=== PATIENT | female | born 1935 | race Caucasian/White ===

== ENCOUNTER → 2019-02-01 | Outpatient (CLI) | payer OTHER ==
[~2019-02-01] MED LIST: ACYC800 PO; ALBU90OI INH; ASPI325 PO; ASPI81CH PO; ASPI81EC PO; Boniva150 MG PO; CALCIUM 600 +1 EAC7 PO; CHOL10002 PO; CIPR500 PO; CLINDAMYCIN PHO TOP; CODGUAEL PO; CORTISONE TP; CYCL10 PO; Cipro500 MG PO; DIAZ5 PO; DOCU100 PO; DOXY100 PO; FISH1000 PO; GABA300 PO; HYDR-86 PO; IBANDRONATE SO150 MG PO; IFEREX PO; LEVFLO500 PO; MECL25 PO; META800 PO; MULVITMIND PO; Macrobid 100 M100 MG PO; Macrodantin100 MG PO; Norco 5-325 Ta1 EACH PO; ONDA4ODT MM; OXYACE5T PO; OXYC1TAB11 PO; PRED20 PO; Percocet 5-3251 EACH PO; Pyridium200 MG PO; RXOXYACE PO; SOLI5 PO; SULTRIDS PO; Stool Softener100 MG PO; TOLT4 PO; Toviaz8 MG PO; VITAMIN D32000 UNIT PO; Valium5 MG PO; WOMEN'S DAILY1 EACH PO; [UNRECOGNIZED DRUG - CODE]; [UNRECOGNIZED DRUG - CODE] PO; [UNRECOGNIZED DRUG - OTHER] PO; [UNRECOGNIZED DRUG - OTHER] TOP
[2019-02-01 19:32] LABS: BASOPHILS ABSOLUTE AUTO 0.06 K/mm3 (0.00-0.23); BASOPHILS PERCENT AUTO 1 % (0-2); EOSINOPHILS ABSOLUTE AUTO 0.37 K/mm3 (0.00-0.68); EOSINOPHILS PERCENT AUTO 5 % (0-6); Hematocrit 40.2 % (33.0-51.0); Hemoglobin 12.5 g/dL (11.5-16.0); IMMATURE GRAN ABSOLUTE AUTO 0.02 K/mm3 (0.00-0.10); IMMATURE GRAN PERCENT AUTO 0 % (0-1); LYMPHOCYTES ABSOLUTE AUTO 2.02 K/mm3 (0.84-5.20); LYMPHOCYTES PERCENT AUTO 27 % (21-46); MONOCYTES ABSOLUTE AUTO 0.66 K/mm3 (0.16-1.47); MONOCYTES PERCENT AUTO 9 % (4-13); Mean Corpuscular HGB 29.7 pg (26.0-34.0); Mean Corpuscular HGB Conc 31.1 g/dL (31.5-36.5); Mean Corpuscular Volume 96 fL (80-100); Mean Platelet Volume 9.9 fL (9.1-12.4); NEUTROPHILS ABSOLUTE AUTO 4.43 K/mm3 (1.96-9.15); NEUTROPHILS PERCENT AUTO 59 % (41-73); Platelet Count 311 K/mm3 (150-400); RDW Coefficient Variation 13.1 % (11.7-14.2); RDW Standard Deviation 45.6 fL (35.1-46.3); Red Blood Cell Count 4.21 M/mm3 (3.80-5.20); White Blood Cell Count 7.56 K/mm3 (4.00-11.30)
[2019-02-01 19:46] LABS: Albumin, Blood 3.5 g/dL (3.4-5.0); Albumin/Globulin Ratio 0.8 (0.8-1.8); Bilirubin, Total 0.2 mg/dL (0.1-1.0); Bun/Creatinine Ratio 30.4 (12.0-20.0); Calcium, Blood 9.1 mg/dL (8.5-10.1); Creatinine, Blood 0.99 mg/dL (0.40-1.00); Globulin, Blood 4.2 g/dL (2.2-4.0); Potassium, Blood 3.9 mmol/L (3.5-5.5); Total Protein, Blood 7.7 g/dL (6.4-8.2)
== END ==
LOC: LAB SHORT 19:15 → LAB 19:15
PROVIDERS: Nurse Practitioner
DX: R19.7 Diarrhea, unspecified (principal); R10.9 Unspecified abdominal pain; R53.83 Other fatigue
CPT/HCPCS: 80053; 85025

== ENCOUNTER → 2019-02-01 | Outpatient (CLI) | payer OTHER ==
[2019-02-02 19:42] LABS: Adenovirus F 40/41 Not Detected (NOT DETECT); Astrovirus Not Detected (NOT DETECT); Campylobacter Sp Not Detected (NOT DETECT); Cryptosporidium Not Detected (NOT DETECT); Cyclospora Cayetanensis Not Detected (NOT DETECT); E. Coli O157 Not Detected (NOT DETECT); Entamoeba Histolytica Not Detected (NOT DETECT); Enteroaggregative E. coli-EAEC Not Detected (NOT DETECT); Enteropathogenic E. coli-EPEC Not Detected (NOT DETECT); Enterotoxigenic E. coli-ETEC Not Detected (NOT DETECT); Giardia Lamblia Not Detected (NOT DETECT); Norovirus GI/GII Not Detected (NOT DETECT); Plesiomonas Shigelloides Not Detected (NOT DETECT); Rotavirus A Not Detected (NOT DETECT); Salmonella Sp Not Detected (NOT DETECT); Sapovirus Not Detected (NOT DETECT); Shiga Toxin-prod E. coli-STEC Not Detected (NOT DETECT); Shigella/Enteroin E. coli-EIEC Not Detected (NOT DETECT); Vibrio Cholerae Not Detected (NOT DETECT); Vibrio Sp Not Detected (NOT DETECT); Yersinia Enterocolitica Not Detected (NOT DETECT)
== END ==
LOC: LAB SHORT 17:57 → LAB 17:57 → LAB SHORT 02-02 16:11
PROVIDERS: Nurse Practitioner
DX: R19.7 Diarrhea, unspecified (principal); R10.9 Unspecified abdominal pain; R53.83 Other fatigue
CPT/HCPCS: 87324; 87507

== ENCOUNTER 2019-05-18 18:33 | Emergency (ER) | payer OTHER ==
[~2019-05-18] VITALS: Ht 165.1 cm; Wt 82.1 kg
[2019-05-18 19:29] LABS: BASOPHILS ABSOLUTE AUTO 0.07 K/mm3 (0.00-0.23); BASOPHILS PERCENT AUTO 1 % (0-2); EOSINOPHILS ABSOLUTE AUTO 0.39 K/mm3 (0.00-0.68); EOSINOPHILS PERCENT AUTO 5 % (0-6); Hemoglobin 12.8 g/dL (11.5-16.0); IMMATURE GRAN ABSOLUTE AUTO 0.03 K/mm3 (0.00-0.10); IMMATURE GRAN PERCENT AUTO 0 % (0-1); LYMPHOCYTES ABSOLUTE AUTO 2.49 K/mm3 (0.84-5.20); LYMPHOCYTES PERCENT AUTO 34 % (21-46); MONOCYTES ABSOLUTE AUTO 0.75 K/mm3 (0.16-1.47); MONOCYTES PERCENT AUTO 10 % (4-13); Mean Corpuscular HGB 29.5 pg (26.0-34.0); Mean Corpuscular HGB Conc 30.5 g/dL (31.5-36.5); Mean Corpuscular Volume 97 fL (80-100); Mean Platelet Volume 8.9 fL (9.1-12.4); NEUTROPHILS ABSOLUTE AUTO 3.51 K/mm3 (1.96-9.15); NEUTROPHILS PERCENT AUTO 48 % (41-73); Platelet Count 334 K/mm3 (150-400); RDW Coefficient Variation 12.9 % (11.7-14.2); RDW Standard Deviation 46.2 fL (35.1-46.3); Red Blood Cell Count 4.34 M/mm3 (3.80-5.20); White Blood Cell Count 7.24 K/mm3 (4.00-11.30)
[2019-05-18 19:53] LABS: Alanine Aminotransfer (ALT/SGP 19 U/L (12-78); Albumin, Blood 3.4 g/dL (3.4-5.0); Albumin/Globulin Ratio 0.8 (0.8-1.8); Alk Phos 71 U/L (50-136); Anion Gap 9 mmol/L (6-16); Aspartate Aminotrans (AST/SGOT 23 U/L (12-37); Bilirubin, Total 0.3 mg/dL (0.1-1.0); Blood Urea Nitrogen 26 mg/dL (8-24); Bun/Creatinine Ratio 19.7 (12.0-20.0); CO2, Blood 25 mmol/L (21-32); Calcium, Blood 8.7 mg/dL (8.5-10.1); Chloride, Blood 105 mmol/L (98-108); Creatinine, Blood 1.32 mg/dL (0.40-1.00); Globulin, Blood 4.3 g/dL (2.2-4.0); Glomerular Filtration Rate 41 (60-); Glucose, Blood 102 mg/dL (70-99); Potassium, Blood 4.4 mmol/L (3.5-5.5); Sodium, Blood 139 mmol/L (136-145); Total Protein, Blood 7.7 g/dL (6.4-8.2); Troponin I <0.015 ng/mL (0.000-0.040)
== END 2019-05-18 20:45 | disposition home or self-care (01) ==
LOC: ER 18:33
PROVIDERS: Emergency Medicine
DX: I49.9 Cardiac arrhythmia, unspecified (principal); Z87.891 Personal history of nicotine dependence; Z79.899 Other long term (current) drug therapy; Z79.82 Long term (current) use of aspirin
CPT/HCPCS: 36415; 71046; 80053; 83880; 84484; 85025; 93005; 93010; 99285-25

== ENCOUNTER 2019-09-20 05:54 | Day surgery (SDC) | payer OTHER ==
[~2019-09-20] VITALS: Ht 160 cm; Wt 82.0 kg
[~2019-09-20 05:54] MED LIST changes: +Aspir 8181 MG PO; +Flonase 0.05% N16 GM; +IRON240 MG PO; +MOTION RELIEF25 MG PO; +NARCAN4 MG UD; +Triamcinolone A15 G3 TOP
--- NOTE | 2019-09-20 10:30 | NUR ---
PT ABUATES TO RESTROOM WITH SBA. PT STEADY GAIT. TOW.
[2019-09-20 11:17] LABS: BASOPHILS ABSOLUTE AUTO 0.06 K/mm3 (0.00-0.23); BASOPHILS PERCENT AUTO 1 % (0-2); EOSINOPHILS ABSOLUTE AUTO 0.38 K/mm3 (0.00-0.68); EOSINOPHILS PERCENT AUTO 6 % (0-6); Hematocrit 38.8 % (33.0-51.0); Hemoglobin 11.9 g/dL (11.5-16.0); IMMATURE GRAN ABSOLUTE AUTO 0.03 K/mm3 (0.00-0.10); IMMATURE GRAN PERCENT AUTO 1 % (0-1); LYMPHOCYTES ABSOLUTE AUTO 1.84 K/mm3 (0.84-5.20); LYMPHOCYTES PERCENT AUTO 31 % (21-46); MONOCYTES ABSOLUTE AUTO 0.39 K/mm3 (0.16-1.47); MONOCYTES PERCENT AUTO 7 % (4-13); Mean Corpuscular HGB Conc 30.7 g/dL (31.5-36.5); Mean Corpuscular Volume 95 fL (80-100); Mean Platelet Volume 8.8 fL (9.1-12.4); NEUTROPHILS ABSOLUTE AUTO 3.25 K/mm3 (1.96-9.15); NEUTROPHILS PERCENT AUTO 55 % (41-73); Platelet Count 330 K/mm3 (150-400); RDW Coefficient Variation 12.8 % (11.7-14.2); RDW Standard Deviation 44.1 fL (35.1-46.3); White Blood Cell Count 5.95 K/mm3 (4.00-11.30)
--- NOTE | 2019-09-20 12:05 | NUR ---
Pt iv removed cath intact. Dr. Noble called pt ok to be discharged. Pt in good spirits. Family at bedside- home via private auto.
== END 2019-09-20 12:00 | disposition home or self-care (01) ==
LOC: MHTC 05:54
PROVIDERS: Internal Medicine Cardiovascular Disease
DX: I49.5 Sick sinus syndrome (principal); M19.90 Unspecified osteoarthritis, unspecified site; Q63.1 Lobulated, fused and horseshoe kidney; Z88.8 Allergy status to other drugs, medicaments and biological substances; M54.9 Dorsalgia, unspecified; G89.29 Other chronic pain; Z79.82 Long term (current) use of aspirin; Z79.899 Other long term (current) drug therapy
CPT/HCPCS: 33208; 36415; 71046; 85025; 93005; 93010; 99152; 99153; C1785; C1898; J0690; J1644; J2250; J3010; J7030; J7040; Q9967

== ENCOUNTER 2019-10-01 15:01 | Emergency (ER) | payer OTHER ==
[~2019-10-01] VITALS: Ht 160 cm; Wt 68.0 kg
[2019-10-01 16:49] LABS: BASOPHILS ABSOLUTE AUTO 0.04 K/mm3 (0.00-0.23); BASOPHILS PERCENT AUTO 0 % (0-2); EOSINOPHILS ABSOLUTE AUTO 0.01 K/mm3 (0.00-0.68); EOSINOPHILS PERCENT AUTO 0 % (0-6); Hematocrit 35.7 % (33.0-51.0); Hemoglobin 11.6 g/dL (11.5-16.0); IMMATURE GRAN ABSOLUTE AUTO 0.06 K/mm3 (0.00-0.10); IMMATURE GRAN PERCENT AUTO 1 % (0-1); LYMPHOCYTES ABSOLUTE AUTO 0.67 K/mm3 (0.84-5.20); LYMPHOCYTES PERCENT AUTO 6 % (21-46); MONOCYTES ABSOLUTE AUTO 0.59 K/mm3 (0.16-1.47); MONOCYTES PERCENT AUTO 5 % (4-13); Mean Corpuscular HGB 30.2 pg (26.0-34.0); Mean Corpuscular HGB Conc 32.5 g/dL (31.5-36.5); Mean Corpuscular Volume 93 fL (80-100); NEUTROPHILS PERCENT AUTO 89 % (41-73); Platelet Count 300 K/mm3 (150-400); RDW Coefficient Variation 12.5 % (11.7-14.2); RDW Standard Deviation 42.3 fL (35.1-46.3); Red Blood Cell Count 3.84 M/mm3 (3.80-5.20); White Blood Cell Count 12.27 K/mm3 (4.00-11.30)
[2019-10-01 17:09] LABS: Albumin, Blood 3.1 g/dL (3.4-5.0); Albumin/Globulin Ratio 0.8 (0.8-1.8); Bilirubin, Total 0.7 mg/dL (0.1-1.0); Bun/Creatinine Ratio 21.4 (12.0-20.0); Calcium, Blood 8.9 mg/dL (8.5-10.1); Creatinine, Blood 1.12 mg/dL (0.40-1.00); Potassium, Blood 3.8 mmol/L (3.5-5.5); Total Protein, Blood 7.1 g/dL (6.4-8.2)
[2019-10-01 17:28] LABS: Source, Urine Clean Catch
[2019-10-01 17:34] LABS: Bilirubin, Urine Neg (Neg); Blood, Urine 4+ (Neg); Glucose Qualitative, Urine Neg (Neg); Ketones, Urine Neg (Neg); Leukocyte Esterase, Urine 3+ (Neg); Nitrite, Urine Neg (Neg); Protein, Urine 3+ (Neg); Urobilinogen, Urine NORM (Normal)
[2019-10-01 18:12] LABS: Appearance, Urine Cloudy (Clear); Color, Urine Yellow (P-Yellow)
[2019-10-01 18:13] LABS: Bacteria Many /hpf; Red Blood Cells, Urine 25-50 /hpf (0-2); Squamous Epithelial Cells Few /hpf (Few); White Blood Cells, Urine TNTC /hpf (0-5)
[2019-10-01] MEDS ORDERED: CEPH500 PO (20:32)
== END 2019-10-01 21:06 | disposition home or self-care (01) ==
LOC: ER 15:01
PROVIDERS: Emergency Medicine
DX: N39.0 Urinary tract infection, site not specified (principal); Z88.8 Allergy status to other drugs, medicaments and biological substances; Z79.899 Other long term (current) drug therapy; Z79.82 Long term (current) use of aspirin; Z87.891 Personal history of nicotine dependence
CPT/HCPCS: 36415; 71045; 80053; 81001; 83690; 85025; 87077; 87086; 87186; 93005; 93010; 96361; 96365; 99284-25; J0696; J7030; P9612

== ENCOUNTER 2020-01-05 00:47 | Emergency (ER) | payer OTHER ==
[~2020-01-05] VITALS: Ht 157.5 cm; Wt 81.7 kg
[~2020-01-05 00:47] MED LIST changes: +CEPH500 PO
[2020-01-05 01:46] LABS: BASOPHILS ABSOLUTE AUTO 0.06 K/mm3 (0.00-0.23); BASOPHILS PERCENT AUTO 1 % (0-2); EOSINOPHILS ABSOLUTE AUTO 0.13 K/mm3 (0.00-0.68); EOSINOPHILS PERCENT AUTO 1 % (0-6); Hematocrit 39.4 % (33.0-51.0); Hemoglobin 12.6 g/dL (11.5-16.0); IMMATURE GRAN ABSOLUTE AUTO 0.05 K/mm3 (0.00-0.10); IMMATURE GRAN PERCENT AUTO 1 % (0-1); LYMPHOCYTES PERCENT AUTO 9 % (21-46); MONOCYTES ABSOLUTE AUTO 0.71 K/mm3 (0.16-1.47); MONOCYTES PERCENT AUTO 7 % (4-13); Mean Corpuscular HGB 29.6 pg (26.0-34.0); Mean Corpuscular Volume 93 fL (80-100); Mean Platelet Volume 8.9 fL (9.1-12.4); NEUTROPHILS ABSOLUTE AUTO 8.42 K/mm3 (1.96-9.15); NEUTROPHILS PERCENT AUTO 82 % (41-73); Platelet Count 278 K/mm3 (150-400); RDW Coefficient Variation 12.8 % (11.7-14.2); RDW Standard Deviation 43.3 fL (35.1-46.3); Red Blood Cell Count 4.26 M/mm3 (3.80-5.20); White Blood Cell Count 10.27 K/mm3 (4.00-11.30)
[2020-01-05 02:02] LABS: Albumin, Blood 3.4 g/dL (3.4-5.0); Albumin/Globulin Ratio 0.8 (0.8-1.8); Bilirubin, Total 0.2 mg/dL (0.1-1.0); Bun/Creatinine Ratio 24.3 (12.0-20.0); Calcium, Blood 9.1 mg/dL (8.5-10.1); Creatinine, Blood 1.03 mg/dL (0.40-1.00); Globulin, Blood 4.1 g/dL (2.2-4.0); Potassium, Blood 3.8 mmol/L (3.5-5.5); Total Protein, Blood 7.5 g/dL (6.4-8.2)
[2020-01-05 02:09] LABS: Source, Urine Clean Catch
[2020-01-05 02:14] LABS: Bilirubin, Urine Neg (Neg); Blood, Urine 2+ (Neg); Glucose Qualitative, Urine Neg (Neg); Ketones, Urine Neg (Neg); Leukocyte Esterase, Urine 3+ (Neg); Nitrite, Urine Pos (Neg); Protein, Urine 3+ (Neg); Specific Gravity, Urine 1.015 (1.003-1.022); Urobilinogen, Urine NORM (Normal); pH, Urine 6.5 (5.0-8.0)
[2020-01-05 02:28] LABS: Appearance, Urine Hazy (Clear); Color, Urine Yellow (P-Yellow); White Blood Cells, Urine 50-100 /hpf (0-5)
[2020-01-05 02:29] LABS: Bacteria Many /hpf; Squamous Epithelial Cells Rare /hpf (Few)
[2020-01-05 02:43] LABS: Magnesium, Blood 1.7 mg/dL (1.6-2.4); Troponin I <0.015 ng/mL (0.000-0.040)
[2020-01-05 03:27] LABS: Influenza A Negative (NEGATIVE); Influenza B Negative (NEGATIVE)
[2020-01-05] MEDS ORDERED: Keflex500 MG PO (03:51)
== END 2020-01-05 03:59 | disposition home or self-care (01) ==
LOC: ER 00:47
PROVIDERS: Emergency Medicine
DX: N39.0 Urinary tract infection, site not specified (principal); Z88.8 Allergy status to other drugs, medicaments and biological substances; Z79.899 Other long term (current) drug therapy; Z79.82 Long term (current) use of aspirin; Z87.891 Personal history of nicotine dependence
CPT/HCPCS: 36415; 51701; 71046; 80053; 81001; 83605; 83735; 83880; 84145; 84484; 85025; 87040; 87077; 87086; 87186; 87804; 93005; 93010; 96365-59; 99284-25; J0696; J7030

== ENCOUNTER → 2020-01-15 | Outpatient (CLI) | payer OTHER ==
[~2020-01-15] MED LIST changes: +Keflex500 MG PO
[2020-01-15 14:44] LABS: Source, Urine Voided
[2020-01-15 15:51] LABS: Bilirubin, Urine Neg (Neg); Blood, Urine Neg (Neg); Glucose Qualitative, Urine Neg (Neg); Ketones, Urine Neg (Neg); Leukocyte Esterase, Urine Neg (Neg); Nitrite, Urine Neg (Neg); Protein, Urine Neg (Neg); Specific Gravity, Urine 1.015 (1.003-1.022); Urobilinogen, Urine NORM (Normal)
[2020-01-15 16:03] LABS: Appearance, Urine Clear (Clear); Color, Urine Yellow (P-Yellow)
== END | disposition home or self-care (01) ==
LOC: LAB SHORT 14:43 → OLS 14:43
PROVIDERS: Registered Nurse
DX: N30.01 Acute cystitis with hematuria (principal)
CPT/HCPCS: 81003

== ENCOUNTER 2021-02-12 13:48 | Emergency (ER) | payer OTHER ==
[~2021-02-12] VITALS: Ht 160 cm; Wt 81.7 kg
[2021-02-12 14:42] LABS: BASOPHILS ABSOLUTE AUTO 0.05 K/mm3 (0.00-0.23); BASOPHILS PERCENT AUTO 1 % (0-2); EOSINOPHILS ABSOLUTE AUTO 0.22 K/mm3 (0.00-0.68); EOSINOPHILS PERCENT AUTO 3 % (0-6); Hematocrit 37.9 % (33.0-51.0); Hemoglobin 12.2 g/dL (11.5-16.0); IMMATURE GRAN ABSOLUTE AUTO 0.04 K/mm3 (0.00-0.10); IMMATURE GRAN PERCENT AUTO 1 % (0-1); LYMPHOCYTES ABSOLUTE AUTO 1.88 K/mm3 (0.84-5.20); LYMPHOCYTES PERCENT AUTO 23 % (21-46); MONOCYTES ABSOLUTE AUTO 0.75 K/mm3 (0.16-1.47); MONOCYTES PERCENT AUTO 9 % (4-13); Mean Corpuscular HGB 30.4 pg (26.0-34.0); Mean Corpuscular HGB Conc 32.2 g/dL (31.5-36.5); Mean Corpuscular Volume 95 fL (80-100); Mean Platelet Volume 8.9 fL (9.1-12.4); NEUTROPHILS ABSOLUTE AUTO 5.43 K/mm3 (1.96-9.15); NEUTROPHILS PERCENT AUTO 65 % (41-73); Platelet Count 321 K/mm3 (150-400); RDW Coefficient Variation 12.5 % (11.7-14.2); RDW Standard Deviation 43.2 fL (35.1-46.3); Red Blood Cell Count 4.01 M/mm3 (3.80-5.20); White Blood Cell Count 8.37 K/mm3 (4.00-11.30)
[2021-02-12 15:03] LABS: Source, Urine Clean Catch
[2021-02-12 15:06] LABS: Appearance, Urine Hazy (Clear); Bilirubin, Urine Neg (Neg); Blood, Urine 2+ (Neg); Color, Urine Yellow (P-Yellow); Glucose Qualitative, Urine Neg (Neg); Ketones, Urine Neg (Neg); Leukocyte Esterase, Urine 3+ (Neg); Nitrite, Urine Neg (Neg); Protein, Urine 2+ (Neg); Urobilinogen, Urine NORM (Normal)
[2021-02-12 15:27] LABS: Alanine Aminotransfer (ALT/SGP 26 U/L (12-78); Albumin, Blood 3.4 g/dL (3.4-5.0); Albumin/Globulin Ratio 0.8 (0.8-1.8); Alk Phos 79 U/L (50-136); Anion Gap 3 mmol/L (6-16); Aspartate Aminotrans (AST/SGOT 31 U/L (12-37); Bilirubin, Total 0.4 mg/dL (0.1-1.0); Blood Urea Nitrogen 30 mg/dL (8-24); Bun/Creatinine Ratio 22.4 (12.0-20.0); CO2, Blood 32 mmol/L (21-32); Calcium, Blood 9.6 mg/dL (8.5-10.1); Chloride, Blood 102 mmol/L (98-108); Creatinine, Blood 1.34 mg/dL (0.40-1.00); Globulin, Blood 4.3 g/dL (2.2-4.0); Glomerular Filtration Rate 40 (60-); Glucose, Blood 98 mg/dL (70-99); Potassium, Blood 4.5 mmol/L (3.5-5.5); Sodium, Blood 137 mmol/L (136-145); Total Protein, Blood 7.7 g/dL (6.4-8.2); Troponin I <0.015 ng/mL (0.000-0.040)
[2021-02-12 15:41] LABS: Bacteria Mod /hpf; Squamous Epithelial Cells Many /hpf (Few); White Blood Cells, Urine TNTC /hpf (0-5)
[2021-02-12] MEDS ORDERED: Keflex500 MG PO (15:55)
[2021-03-17] MEDS ORDERED: Percocet 5-3251 EACH PO (18:53)
== END 2021-02-12 16:55 | disposition home or self-care (01) ==
LOC: ER 13:48
PROVIDERS: Physician Assistant
DX: N39.0 Urinary tract infection, site not specified (principal); R41.82 Altered mental status, unspecified; Z88.8 Allergy status to other drugs, medicaments and biological substances; Z79.82 Long term (current) use of aspirin; Z79.899 Other long term (current) drug therapy; Z87.891 Personal history of nicotine dependence
CPT/HCPCS: 36415; 71046; 80053; 81001; 84484; 85025; 87086; 93005; 93010; 99285-25; A9270

== ENCOUNTER 2021-03-31 09:46 | Emergency (ER) | payer OTHER ==
[~2021-03-31] VITALS: Ht 162.6 cm; Wt 81.7 kg
[2021-03-31 10:27] LABS: BASOPHILS ABSOLUTE AUTO 0.04 K/mm3 (0.00-0.23); BASOPHILS PERCENT AUTO 0 % (0-2); EOSINOPHILS PERCENT AUTO 0 % (0-6); Hematocrit 30.3 % (33.0-51.0); Hemoglobin 9.9 g/dL (11.5-16.0); IMMATURE GRAN ABSOLUTE AUTO 0.06 K/mm3 (0.00-0.10); IMMATURE GRAN PERCENT AUTO 1 % (0-1); LYMPHOCYTES ABSOLUTE AUTO 1.31 K/mm3 (0.84-5.20); LYMPHOCYTES PERCENT AUTO 13 % (21-46); MONOCYTES ABSOLUTE AUTO 0.78 K/mm3 (0.16-1.47); MONOCYTES PERCENT AUTO 8 % (4-13); Mean Corpuscular HGB 30.6 pg (26.0-34.0); Mean Corpuscular HGB Conc 32.7 g/dL (31.5-36.5); Mean Corpuscular Volume 94 fL (80-100); Mean Platelet Volume 8.3 fL (9.1-12.4); NEUTROPHILS ABSOLUTE AUTO 7.64 K/mm3 (1.96-9.15); NEUTROPHILS PERCENT AUTO 78 % (41-73); Platelet Count 430 K/mm3 (150-400); RDW Coefficient Variation 13.2 % (11.7-14.2); RDW Standard Deviation 44.6 fL (35.1-46.3); Red Blood Cell Count 3.24 M/mm3 (3.80-5.20); White Blood Cell Count 9.83 K/mm3 (4.00-11.30)
[2021-03-31 10:49] LABS: Alanine Aminotransfer (ALT/SGP 22 U/L (12-78); Albumin/Globulin Ratio 0.7 (0.8-1.8); Alk Phos 89 U/L (50-136); Anion Gap 6 mmol/L (6-16); Aspartate Aminotrans (AST/SGOT 22 U/L (12-37); Bilirubin, Total 0.5 mg/dL (0.1-1.0); Blood Urea Nitrogen 17 mg/dL (8-24); Bun/Creatinine Ratio 18.2 (12.0-20.0); CO2, Blood 26 mmol/L (21-32); Calcium, Blood 8.7 mg/dL (8.5-10.1); Chloride, Blood 105 mmol/L (98-108); Creatinine, Blood 0.93 mg/dL (0.40-1.00); Globulin, Blood 4.2 g/dL (2.2-4.0); Glomerular Filtration Rate >60 (60-); Glucose, Blood 108 mg/dL (70-99); Potassium, Blood 3.7 mmol/L (3.5-5.5); Sodium, Blood 137 mmol/L (136-145); Total Protein, Blood 7.2 g/dL (6.4-8.2); Troponin I <0.015 ng/mL (0.000-0.040)
[2021-03-31 10:52] LABS: Thyroid Stimulating Hormone 0.463 uIU/mL (0.360-4.800)
[2021-03-31 11:01] LABS: Source, Urine Voided
[2021-03-31 11:04] LABS: Appearance, Urine Clear (Clear); Bilirubin, Urine Neg (Neg); Blood, Urine 2+ (Neg); Color, Urine Yellow (P-Yellow); Glucose Qualitative, Urine Neg (Neg); Ketones, Urine Neg (Neg); Leukocyte Esterase, Urine 3+ (Neg); Nitrite, Urine Pos (Neg); Protein, Urine 1+ (Neg); Specific Gravity, Urine 1.005 (1.003-1.022); Urobilinogen, Urine NORM (Normal)
[2021-03-31 11:23] LABS: Bacteria Many /hpf; Mucus Light (0-Heavy); Squamous Epithelial Cells Few /hpf (Few)
[2021-03-31] MEDS ORDERED: CEPHALEXIN500 M1 PO (13:15)
== END 2021-03-31 14:06 | disposition home or self-care (01) ==
LOC: ER 09:46
PROVIDERS: Emergency Medicine
DX: N39.0 Urinary tract infection, site not specified (principal); Z88.8 Allergy status to other drugs, medicaments and biological substances; Z79.82 Long term (current) use of aspirin; Z79.899 Other long term (current) drug therapy; Z87.891 Personal history of nicotine dependence
CPT/HCPCS: 36415; 71045; 80053; 81001; 83880; 84443; 84484; 85025; 93005; 93010; 99284-25; A9270; P9612

== ENCOUNTER → 2021-05-23 | Outpatient (CLI) | payer OTHER ==
[~2021-05-23] MED LIST changes: +CEPHALEXIN500 M1 PO
== END | disposition home or self-care (01) ==
LOC: LAB 09:06 → LAB SHORT 09:06
DX: R35.0 Frequency of micturition (principal)
CPT/HCPCS: 87077; 87086; 87186

== ENCOUNTER → 2021-06-18 | Outpatient (CLI) | payer OTHER | LOC: LAB 17:44 → LAB SHORT 17:44 | DX: N39.0 Urinary tract infection, site not specified (principal); Z88.4 Allergy status to anesthetic agent; Z88.1 Allergy status to other antibiotic agents; Z88.2 Allergy status to sulfonamides | CPT/HCPCS: 87086 ==

== ENCOUNTER 2022-06-02 13:00 | Emergency (ER) | payer OTHER ==
[~2022-06-02] VITALS: Ht 154.9 cm; Wt 83.9 kg
== END 2022-06-02 15:06 | disposition home or self-care (01) ==
LOC: ER 13:00
DX: S63.501A Unspecified sprain of right wrist, initial encounter (principal); M25.531 Pain in right wrist; Z79.899 Other long term (current) drug therapy; Z79.82 Long term (current) use of aspirin; Z88.8 Allergy status to other drugs, medicaments and biological substances; Z91.09 Other allergy status, other than to drugs and biological substances; Z87.891 Personal history of nicotine dependence; Z96.651 Presence of right artificial knee joint
CPT/HCPCS: 29125; 73110; 99283-25

== ENCOUNTER → 2022-08-27 | Outpatient (CLI) | payer OTHER | END | disposition home or self-care (01) | LOC: LAB 17:33 → LAB SHORT 17:33 | DX: R30.0 Dysuria (principal) | CPT/HCPCS: 87077; 87086; 87186 ==

== ENCOUNTER → 2022-09-08 | Outpatient (CLI) | payer OTHER ==
[2022-09-08 15:08] LABS: BASOPHILS ABSOLUTE AUTO 0.06 K/mm3 (0.00-0.23); BASOPHILS PERCENT AUTO 1 % (0-2); EOSINOPHILS ABSOLUTE AUTO 0.16 K/mm3 (0.00-0.68); EOSINOPHILS PERCENT AUTO 3 % (0-6); Hematocrit 39.3 % (33.0-51.0); Hemoglobin 12.7 g/dL (11.5-16.0); IMMATURE GRAN ABSOLUTE AUTO 0.01 K/mm3 (0.00-0.10); IMMATURE GRAN PERCENT AUTO 0 % (0-1); LYMPHOCYTES ABSOLUTE AUTO 1.74 K/mm3 (0.84-5.20); LYMPHOCYTES PERCENT AUTO 35 % (21-46); MONOCYTES ABSOLUTE AUTO 0.63 K/mm3 (0.16-1.47); MONOCYTES PERCENT AUTO 13 % (4-13); Mean Corpuscular HGB 30.2 pg (26.0-34.0); Mean Corpuscular HGB Conc 32.3 g/dL (31.5-36.5); Mean Corpuscular Volume 94 fL (80-100); Mean Platelet Volume 9.1 fL (9.1-12.4); NEUTROPHILS ABSOLUTE AUTO 2.37 K/mm3 (1.96-9.15); NEUTROPHILS PERCENT AUTO 48 % (41-73); Platelet Count 315 K/mm3 (150-400); RDW Coefficient Variation 13.8 % (11.7-14.2); RDW Standard Deviation 46.5 fL (35.1-46.3); White Blood Cell Count 4.97 K/mm3 (4.00-11.30)
[2022-09-08 15:29] LABS: Albumin, Blood 3.4 g/dL (3.4-5.0); Bilirubin, Total 0.4 mg/dL (0.1-1.0); Bun/Creatinine Ratio 24.3 (12.0-20.0); Calcium, Blood 9.1 mg/dL (8.5-10.1); Creatinine, Blood 1.03 mg/dL (0.40-1.00); Globulin, Blood 3.3 g/dL (2.2-4.0); Potassium, Blood 4.1 mmol/L (3.5-5.5); Total Protein, Blood 6.7 g/dL (6.4-8.2)
== END ==
LOC: LAB 14:00 → LAB SHORT 14:00
PROVIDERS: Nurse Practitioner Family
DX: R30.0 Dysuria (principal); R41.9 Unspecified symptoms and signs involving cognitive functions and awareness
CPT/HCPCS: 80053; 85025

== ENCOUNTER → 2023-01-06 | Outpatient (CLI) | payer OTHER | END | disposition home or self-care (01) | LOC: LAB 12:00 → LAB SHORT 12:00 | DX: R30.0 Dysuria (principal) | CPT/HCPCS: 87086 ==

== ENCOUNTER → 2023-01-08 | Outpatient (CLI) | payer OTHER ==
[2023-01-08 13:28] LABS: BASOPHILS ABSOLUTE AUTO 0.06 K/mm3 (0.00-0.23); BASOPHILS PERCENT AUTO 1 % (0-2); EOSINOPHILS PERCENT AUTO 2 % (0-6); Hematocrit 41.5 % (33.0-51.0); Hemoglobin 13.9 g/dL (11.5-16.0); IMMATURE GRAN ABSOLUTE AUTO 0.02 K/mm3 (0.00-0.10); IMMATURE GRAN PERCENT AUTO 0 % (0-1); LYMPHOCYTES ABSOLUTE AUTO 1.77 K/mm3 (0.84-5.20); LYMPHOCYTES PERCENT AUTO 29 % (21-46); MONOCYTES PERCENT AUTO 8 % (4-13); Mean Corpuscular HGB 30.2 pg (26.0-34.0); Mean Corpuscular HGB Conc 33.5 g/dL (31.5-36.5); Mean Corpuscular Volume 90 fL (80-100); NEUTROPHILS ABSOLUTE AUTO 3.62 K/mm3 (1.96-9.15); NEUTROPHILS PERCENT AUTO 60 % (41-73); RDW Coefficient Variation 12.8 % (11.7-14.2); RDW Standard Deviation 41.8 fL (35.1-46.3); Red Blood Cell Count 4.61 M/mm3 (3.80-5.20); White Blood Cell Count 6.07 K/mm3 (4.00-11.30)
[2023-01-08 13:46] LABS: Albumin, Blood 3.8 g/dL (3.4-5.0); Albumin/Globulin Ratio 0.8 (0.8-1.8); Bilirubin, Total 0.4 mg/dL (0.1-1.0); Bun/Creatinine Ratio 16.5 (12.0-20.0); Calcium, Blood 9.4 mg/dL (8.5-10.1); Creatinine, Blood 2.49 mg/dL (0.40-1.00); Globulin, Blood 4.5 g/dL (2.2-4.0); Magnesium, Blood 1.6 mg/dL (1.6-2.4); Potassium, Blood 4.2 mmol/L (3.5-5.5); Thyroid Stimulating Hormone 1.182 uIU/mL (0.360-4.800); Total Protein, Blood 8.3 g/dL (6.4-8.2)
[2023-01-08 15:04] LABS: Mean Platelet Volume 8.8 fL (9.1-12.4); Platelet Count 334 K/mm3 (150-400)
== END | disposition home or self-care (01) ==
LOC: LAB 13:13 → LAB SHORT 13:13
PROVIDERS: Physician Assistant
DX: R53.83 Other fatigue (principal); R06.00 Dyspnea, unspecified
CPT/HCPCS: 80053; 83735; 83880; 84443; 85025

== ENCOUNTER → 2023-02-03 | Outpatient (CLI) | payer OTHER ==
[2023-02-03 17:10] LABS: Source, Urine Clean Catch
[2023-02-03 17:51] LABS: Appearance, Urine Hazy (Clear); Bilirubin, Urine Neg (Neg); Blood, Urine Neg (Neg); Color, Urine Yellow (P-Yellow); Glucose Qualitative, Urine Neg (Neg); Ketones, Urine Neg (Neg); Leukocyte Esterase, Urine 1+ (Neg); Nitrite, Urine Neg (Neg); Protein, Urine 2+ (Neg); Specific Gravity, Urine 1.015 (1.003-1.022); Urobilinogen, Urine NORM (Normal)
[2023-02-03 18:00] LABS: Bacteria Many /hpf; Calcium Oxalate Crystals Mod /hpf; Red Blood Cells, Urine 0-2 /hpf (0-2); Squamous Epithelial Cells Mod /hpf (Few)
== END | disposition home or self-care (01) ==
LOC: LAB SHORT 09:05 → LAB 09:05
PROVIDERS: Registered Nurse
DX: N39.0 Urinary tract infection, site not specified (principal)
CPT/HCPCS: 81001; 87086

== ENCOUNTER 2023-07-19 01:20 | Emergency (ER) | payer OTHER ==
[~2023-07-19] VITALS: Ht 160 cm; Wt 79.4 kg
[2023-07-19 02:17] LABS: BASOPHILS ABSOLUTE AUTO 0.05 K/mm3 (0.00-0.23); BASOPHILS PERCENT AUTO 1 % (0-2); EOSINOPHILS ABSOLUTE AUTO 0.34 K/mm3 (0.00-0.68); EOSINOPHILS PERCENT AUTO 4 % (0-6); Hematocrit 37.3 % (33.0-51.0); Hemoglobin 12.4 g/dL (11.5-16.0); IMMATURE GRAN ABSOLUTE AUTO 0.05 K/mm3 (0.00-0.10); IMMATURE GRAN PERCENT AUTO 1 % (0-1); LYMPHOCYTES ABSOLUTE AUTO 2.06 K/mm3 (0.84-5.20); LYMPHOCYTES PERCENT AUTO 26 % (21-46); MONOCYTES ABSOLUTE AUTO 0.71 K/mm3 (0.16-1.47); MONOCYTES PERCENT AUTO 9 % (4-13); Mean Corpuscular HGB Conc 33.2 g/dL (31.5-36.5); Mean Corpuscular Volume 90 fL (80-100); NEUTROPHILS ABSOLUTE AUTO 4.71 K/mm3 (1.96-9.15); NEUTROPHILS PERCENT AUTO 60 % (41-73); Platelet Count 299 K/mm3 (150-400); Red Blood Cell Count 4.13 M/mm3 (3.80-5.20); White Blood Cell Count 7.92 K/mm3 (4.00-11.30)
[2023-07-19 02:53] LABS: Albumin, Blood 3.4 g/dL (3.4-5.0); Albumin/Globulin Ratio 0.9 (0.8-1.8); Bilirubin, Total 0.2 mg/dL (0.1-1.0); Calcium, Blood 8.5 mg/dL (8.5-10.1); Creatinine, Blood 1.29 mg/dL (0.40-1.00); Globulin, Blood 3.7 g/dL (2.2-4.0); Potassium, Blood 4.1 mmol/L (3.5-5.5); Total Protein, Blood 7.1 g/dL (6.4-8.2)
[2023-07-19 05:15] VITALS: BP 176/65
[2023-07-19] MEDS ORDERED: CYCL10 PO (06:13)
[2023-07-19] MEDS ORDERED: LIDO700A20 TOP (06:13)
== END 2023-07-19 06:46 | disposition home or self-care (01) ==
LOC: ER 01:20
PROVIDERS: Student in an Organized Health Care Education/Training Program
DX: S22.069A Unspecified fracture of T7-T8 vertebra, initial encounter for closed fracture (principal); R07.9 Chest pain, unspecified; J98.11 Atelectasis; X58.XXXA Exposure to other specified factors, initial encounter; Z88.8 Allergy status to other drugs, medicaments and biological substances; Z79.899 Other long term (current) drug therapy; Z87.891 Personal history of nicotine dependence
CPT/HCPCS: 71275; 80053; 83690; 84484; 85025; 93005; 93010; 96374; 96376; 99285-25; A9270; J3010; Q9967

== ENCOUNTER 2023-07-22 10:18 | Inpatient (IN) | payer OTHER ==
[2023-07-22] VITALS (8 sets, daily range): BP systolic 93–140; BP diastolic 41–94
[~2023-07-22] VITALS: Ht 170.2 cm; Wt 95.2 kg
[~2023-07-22 10:18] MED LIST changes: +LIDO700A20 TOP
[2023-07-22 10:46] LABS: BASOPHILS ABSOLUTE AUTO 0.05 K/mm3 (0.00-0.23); BASOPHILS PERCENT AUTO 0 % (0-2); EOSINOPHILS ABSOLUTE AUTO 0.04 K/mm3 (0.00-0.68); EOSINOPHILS PERCENT AUTO 0 % (0-6); Hematocrit 37.5 % (33.0-51.0); Hemoglobin 12.5 g/dL (11.5-16.0); IMMATURE GRAN ABSOLUTE AUTO 0.06 K/mm3 (0.00-0.10); IMMATURE GRAN PERCENT AUTO 1 % (0-1); LYMPHOCYTES ABSOLUTE AUTO 1.13 K/mm3 (0.84-5.20); LYMPHOCYTES PERCENT AUTO 10 % (21-46); MONOCYTES PERCENT AUTO 9 % (4-13); Mean Corpuscular HGB 29.8 pg (26.0-34.0); Mean Corpuscular HGB Conc 33.3 g/dL (31.5-36.5); Mean Corpuscular Volume 89 fL (80-100); Mean Platelet Volume 8.8 fL (9.1-12.4); NEUTROPHILS ABSOLUTE AUTO 9.41 K/mm3 (1.96-9.15); NEUTROPHILS PERCENT AUTO 81 % (41-73); Platelet Count 277 K/mm3 (150-400); RDW Coefficient Variation 13.1 % (11.7-14.2); RDW Standard Deviation 42.9 fL (35.1-46.3); White Blood Cell Count 11.69 K/mm3 (4.00-11.30)
[2023-07-22 10:48] LABS: Base Excess Venous -5.4 mmol/L; Bicarbonate Venous 20.2 mmol/L (24.0-30.0); pH Blood Venous 7.33 (7.34-7.37)
[2023-07-22 11:22] LABS: Source, Urine Straight Cath
[2023-07-22 11:22] LABS: Albumin, Blood 3.5 g/dL (3.4-5.0); Albumin/Globulin Ratio 0.9 (0.8-1.8); Bilirubin, Total 0.5 mg/dL (0.1-1.0); Bun/Creatinine Ratio 16.9 (12.0-20.0); Calcium, Blood 8.8 mg/dL (8.5-10.1); Creatinine, Blood 2.37 mg/dL (0.40-1.00); Globulin, Blood 4.1 g/dL (2.2-4.0); Potassium, Blood 4.1 mmol/L (3.5-5.5); Total Protein, Blood 7.6 g/dL (6.4-8.2)
[2023-07-22 11:24] LABS: Appearance, Urine Cloudy (Clear); Blood, Urine 4+ (Neg); Color, Urine Yellow (P-Yellow); Glucose Qualitative, Urine Neg (Neg); Ketones, Urine Neg (Neg); Leukocyte Esterase, Urine 3+ (Neg); Nitrite, Urine Neg (Neg); Protein, Urine 2+ (Neg); Specific Gravity, Urine 1.015 (1.003-1.022); Urobilinogen, Urine 1+ (Normal)
[2023-07-22 11:38] LABS: Bilirubin, Urine 1+ (Neg)
[2023-07-22 11:39] LABS: White Blood Cells, Urine TNTC /hpf (0-5)
[2023-07-22 11:40] LABS: Bacteria Many /hpf; Squamous Epithelial Cells Few /hpf (Few)
--- NOTE | 2023-07-22 14:20 | NUR ---
ARRIVAL TO PCU PT BROUGHT TO PCU 13 VIA GURNEY. PT VERY DROWSY BUT WAKENS TO LOUD VERBAL STIMULI. SHE IS ON 3L NC. AUDIBLE WHEEZING. FAMILY AT BEDSIDE TO GATHER HEALTH HISTORY. FAMILY REPORTS SON GIL WAS AT PT'S HOME UNTIL APPROX 22:00. PT WANTED TO STAY IN CHAIR DUE TO BACK PAIN. SON WENT TO CHECK ON PT TODAY AND FOUND PT ON THE FLOOR WITH [facility] AND CALLED EMS. PT IS A&OX2 AND UNABLE TO CONSISTENTLY ANSWER QUESTIONS. SHE STS SHE REMEMBERS FALLING AND THAT IT WAS LAST NIGHT BUT LATER STS IT WAS THIS MORNING. PT APPEARS CONFUSED OVERALL. SHE FIGITS WITH EQUIPMENT. FAMILY STS BEHAVIOR IS SIMILAR WHEN SHE HAS A UTI. BP STABLE SINCE ARRIVAL. BED IN LOW POSITION, CALL LIGHT WITHIN REACH. FAMILY AT BEDSIDE.
[2023-07-22] MEDS ORDERED: PROBIOTIC1 EA13 PO (14:41)
--- NOTE | 2023-07-22 17:12 | NUR ---
UPDATE/HOME SITUATION/CODE STATUS FAMILY STS PT LIVES WITH A "BOYFRIEND" NAMED KARO. SON GIL VISITS DAILY TO ASSIST WITH CARE AND THINGS AROUND THE HOME. FAMILY HAS NOTICED PT HAS INCREASED CONFUSION IN THE AFTERNOON AND NIGHT THAT HAS BEEN PROGRESSING. PT'S PCP PLACED REFERRAL FOR HOME HEALTH X2 DAYS A WEEK AND PT. FAMILY HAS NOT HEARD FOLLOW UP REGARDING START DATE. FAMILY EXPRESSES CONCERN THAT THE PT MAY NEED MORE ASSISTANCE THAN 2 DAYS A WEEK. DURING ADMISSION HISTORY PT DROWSY AND CONFUSED. WHEN ASKED IF SHE WOULD WANT CPR SHE STS " I DON'T KNOW". FAMILY STS THEY HAVE BEEN GIVEN FORMS AND DISCUSSED FILLING THEM OUT BUT HAVE NOT. KSENIA CORDERO IS POA. PER FAMILY, FULL CODE AT THIS TIME. PT AGREEABLE TO MEETING WITH PALLIATIVE CARE REGARDING FILLING OUT FORMS.
[2023-07-23] VITALS (8 sets, daily range): BP systolic 88–154; BP diastolic 46–74
[2023-07-23 03:54] LABS: Hematocrit 33.3 % (33.0-51.0)
[2023-07-23 04:30] LABS: Magnesium, Blood 1.8 mg/dL (1.6-2.4); Thyroid Stimulating Hormone 0.429 uIU/mL (0.360-4.800); Uric Acid, Blood 6.6 mg/dL (2.6-6.0)
[2023-07-23 04:31] LABS: Albumin, Blood 2.5 g/dL (3.4-5.0); Anion Gap 7 mmol/L (6-16); Blood Urea Nitrogen 36 mg/dL (8-24); Bun/Creatinine Ratio 19.7 (12.0-20.0); CO2, Blood 22 mmol/L (21-32); Calcium, Blood 7.9 mg/dL (8.5-10.1); Chloride, Blood 112 mmol/L (98-108); Creatinine, Blood 1.83 mg/dL (0.40-1.00); Glomerular Filtration Rate 26 (60-); Glucose, Blood 107 mg/dL (70-99); Phosphorus, Blood 4.2 mg/dL (2.5-4.9); Sodium, Blood 141 mmol/L (136-145)
--- NOTE | 2023-07-23 05:16 | NUR ---
LOW BP'S PT'S BEEN HAVING LOW BP'S/MAP PRESSURES T/O NIGHT. NON SYMPTOMATIC, AROUSES EASILY AND PRESSURES COME UP AFTER PT WAKES UP A LITTLE. CALL PLACED TO @ [phone] TO UPDATE ABOUT PT STATUS. NO NEW ORDERS AT THIS TIME.
--- NOTE | 2023-07-23 06:22 | NUR ---
SHIFT SUMMARY PT A&OX2, BUT PLEASANT AND COOPERATIVE WITH CARE. HOURLY BP'S HAVE BEEN SOFT, BUT PT AROUSES EASILY AND BP'S COME UP. MEDICATED FOR PAIN WITH TYLENOL. 5L O2 WITH SIMPLE MASK, SATS >95%. PT IN ATTENDS/PUREWICK. STRAIT CATHED ONCE FOR >600ML. TAKES PROMPTING FOR PT TO USE PUREWICK. FAMILY HAS BEEN AT BEDSIDE T/O NIGHT. PT HAS NOT BEEN USING CALL LIGHT, BUT FAMILY CALLS APPROPRIATELY.
--- NOTE | 2023-07-23 17:01 | NUR ---
SHIFT SUMMARY PT REMAINS ALERT AND ORIENTED THIS SHIFT. BP SOFT AT TIMES, BUT STABLE. HR REMAINS PACED AT 60. O2 SATS HAVE REMAINED ABOVE 90% ON 2L NC. LS COARSE THROUGHOUT AND PT HAS PRODUCTIVE COUGH. PT COMPLAINS OF PAIN TO LEFT BACK AND MEDICATED PER EMAR. HEATING PAD APPLIED. PT INCONTINENT OF URINE, BUT PUREWICK IN PLACE. BED BATH PROVIDED TODAY. PT REPOSITIONED Q2H. FAMILY AT BEDSIDE ALL SHIFT. WILL CONTINUE TO MONITOR AND REPORT TO ONCOMING MEDINA
[2023-07-24] VITALS (7 sets, daily range): BP systolic 99–163; BP diastolic 63–84
--- NOTE | 2023-07-24 01:35 | NUR ---
0130 - PT AWAKENED AND IS AGITATED, KICKING STAFF, TAKING OFF TELEMETRY AND O2. PT NOT REDIRECTABLE. ATTEMPTED TO CALL DAUGHTER IN LAW - JOSE MIGUEL WITH NO ANSWER AND SPOKE WITH SON GIL VIA PHONE. HE IS NOT ABLE TO COME IN AND SIT WITH PATIENT. NOTIFIED OF USE OF RESTRAINTS AND POTENTIAL NEED FOR MEDICATION. PT PLACED IN 2PT UPPER RESTRAINTS. CLINICAL APPEALS RN RESIDENT DR. Liagn NOTIFIED AND ORDERS FOR ZYPREXA RECEIVED.,
--- NOTE | 2023-07-24 01:47 | NUR ---
UPDATE MD NOTIFIED OF PT PULLING AT LINES AND ATTEMPTING TO HIT AT STAFF. ORDERS FOR 5 MG OF ZYPREXA IM NOW.
--- NOTE | 2023-07-24 07:32 | NUR ---
SHIFT SUMMARY: ALERT, ORIENTED TO SELF ONLY. ATTEMPTING TO REORIENT TO WITHOUT SUCCESS. MOOD LABILE, AT TIMES SMILING AND LAUGHING, AT TIMES HITTING AND SPITTING. VITAL SIGNS HAVE REMAINED STABLE THROUGHOUT SHIFT. AFEBRILE. HR IN SR. DENIES CHEST PRESSURE/PAIN. REPORTS PAIN IN LEFT RIB AND BACK AREA DUE TO RECENT FX OF SPINE PER REPORT. PT STATES "I HAVEN'T HAD A FALL IN YEARS". PAIN REPSONDS WELL TO PRN PO PAIN MEDICATION, SEE EMAR. PT BECAME COMBATIVE AT APPROXIMATELY 0100, KICKING, SPITTING, AND HITTING STAFF MEMBERS ATTEMPTING TO ASSIST PT WHEN ATTEMPTING TO GET OUT OF BED. UNABLE OT REORIENT. PLACED IN BILATERALY WRIST RESTRAINTS FOR PT AND STAFF SAFETY. ZYPREXA GIVEN, SEE EMAR. FAMILY CALLED AND REQUESTED TO COME SIT WITH PT TO ASSIST WITH ORIENTATION. SON ATTENTIVE AT [facility]. WRIST RESTRAINTS REMOVED IN LESS THEN ONE HOUR AFTER BEING PLACED. CONTINUES TO BE CONFUSED BUT COOPERATIVE WITH CARE AT THIS TIME. CALL LIGHT IN REACH. BED ALARM ON.
[2023-07-24 07:54] LABS: Hematocrit 36.3 % (33.0-51.0); Hemoglobin 11.9 g/dL (11.5-16.0)
[2023-07-24 08:17] LABS: Albumin, Blood 2.6 g/dL (3.4-5.0); Anion Gap 5 mmol/L (6-16); Blood Urea Nitrogen 31 mg/dL (8-24); Bun/Creatinine Ratio 26.3 (12.0-20.0); CO2, Blood 22 mmol/L (21-32); Calcium, Blood 8.5 mg/dL (8.5-10.1); Chloride, Blood 113 mmol/L (98-108); Creatinine, Blood 1.18 mg/dL (0.40-1.00); Glomerular Filtration Rate 44 (60-); Glucose, Blood 99 mg/dL (70-99); Magnesium, Blood 1.8 mg/dL (1.6-2.4); Phosphorus, Blood 2.9 mg/dL (2.5-4.9); Potassium, Blood 4.3 mmol/L (3.5-5.5); Sodium, Blood 140 mmol/L (136-145)
--- NOTE | 2023-07-24 10:35 | NUR ---
UPDATE CALLED IN BY PT'S FAMILY MEMBER STATING PT IS AGITATED AND TRYING TO GO HOME. THIS RN ENTERS ROOM AND PT ATTEMPTING TO GET OUT OF BED. THIS RN AND PCT HELP PT AMBULATE TO BATHROOM. PT ABLE TO VOID. PT STEADY ON FEET. AFTER PT GOT BACK IN BED, SHE STILL WAS AGITATED AND WANTING TO GO HOME. THIS RN SAT WITH PT AND PROVIDED DISTRACTION BY ASKING HER TO FOLD LINEN. PT CALMED DOWN. VS STABLE. O2 SATS ABOVE 90% ON RA. PT COMPLAINS OF PAIN TO LEFT BACK AND MEDICATED PER EMAR. HEATING PAD APPLIED REQUESTED. FAMILY REMAINS AT BEDSIDE. WILL CONTINUE TO MONITOR CLOSELY
--- NOTE | 2023-07-24 17:24 | NUR ---
SHIFT SUMMARY PT REMAINS CONFUSED THROUGHOUT SHIFT. PT DOES HAVE MOMENTS OF BEING ORIENTED. BP STABLE THIS SHIFT. TELEMETRY DISCONTINUED. O2 SATS >90% ON RA. PT USING FLUTTER THERAPY THIS SHIFT AND PRODUCING DARK YELLOW SPUTUM. PT UP AND WALKING TO THE BATHROOM THIS SHIFT WIHT 1 ASSIST. PT CONTINENT OF URINE TODAY. PT COMPLAINED OF PAIN IN HER LEFT UPPER BACK THAT WAS RELIEVED WITH MEDICATION ADMINISTRATION. FAMILY AT BEDSIDE ALL SHIFT. WILL CONTINUE TO MONITOR AND REPORT TO ONCOMING RN
[2023-07-25 03:43] VITALS: BP 167/77
[2023-07-25 04:29] LABS: Hematocrit 34.1 % (33.0-51.0); Hemoglobin 11.2 g/dL (11.5-16.0)
[2023-07-25 04:51] LABS: Albumin, Blood 2.6 g/dL (3.4-5.0); Anion Gap 6 mmol/L (6-16); Blood Urea Nitrogen 26 mg/dL (8-24); CO2, Blood 25 mmol/L (21-32); Calcium, Blood 8.9 mg/dL (8.5-10.1); Chloride, Blood 109 mmol/L (98-108); Creatinine, Blood 1.24 mg/dL (0.40-1.00); Glomerular Filtration Rate 42 (60-); Glucose, Blood 113 mg/dL (70-99); Magnesium, Blood 1.6 mg/dL (1.6-2.4); Phosphorus, Blood 2.8 mg/dL (2.5-4.9); Potassium, Blood 3.9 mmol/L (3.5-5.5); Sodium, Blood 140 mmol/L (136-145)
--- NOTE | 2023-07-25 06:04 | NUR ---
End of shift note. Pt seems to have had a better shift tonight, compared to last night. Pt did have some signs of sundowning but was pleasantly forgetful and easily re-directable. Pt has been ambulating into the bathroom with minimal assistance. Granddaughter has been at bedside all shift. Pt is able to make needs known.
[2023-07-25] MEDS ORDERED: Prinivil10 MG PO (07:22)
[2023-07-25] MEDS ORDERED: Percocet 5-3251 EACH PO (07:23)
[2023-07-25 08:07] VITALS: BP 144/72
--- NOTE | 2023-07-25 09:01 | NUR ---
ASSUMED CARE PT ALERT AND ORIENTED TO SELF, , KNOWS SHE IS IN [place], BUT CANNOT STATE THAT SHE IS IN A HOSPITAL THIS AM. PT THINKS THE YEAR IS 2020. BP STABLE. O2 SATS ABOVE 90% ON RA. PT COMPLAINS OF PAIN TO HER BACK AND MEDICATED PER EMAR. PT ABLE TO AMBULATE TO BATHROOM WITH GB AND MINIMAL ASSISTANCE. PT ABLE TO VOID. FAMILY AT BEDSIDE. WILL CONTINUE TO MONITOR CLOSELY
[2023-07-25] MEDS ORDERED: GUAIASORB DM 2118 ML PO (10:01)
[2023-07-25] MEDS ORDERED: LEVFLO500 PO (10:01)
[2023-07-25] MEDS ORDERED: BUME2 PO (10:01)
[2023-07-25] MEDS ORDERED: OXYC5 PO (10:02)
[2023-07-25] MEDS ORDERED: DOCU100 PO (10:02)
[2023-07-25] MEDS ORDERED: MIRALAX1714 PO (10:03)
[2023-07-25] MEDS ORDERED: VISBIOME 112.51 EACH PO (10:54)
[2023-07-25 12:27] VITALS: BP 132/78
--- NOTE | 2023-07-25 12:27 | NUR ---
UPDATE PT UP IN THE CHAIR EATING LUNCH. VS STABLE. DISCHARGE ORDERS IN. AWAITING SON TO ARRIVE TO GO OVER DISCHARGE INSTRUCTIONS. PT DENIES ANY PAIN AT THIS TIME. WILL CONTINUE TO MONITOR
--- NOTE | 2023-07-25 13:28 | NUR ---
UPDATE DISCHARGE INSTRUCTIONS PROVIDED TO PT AND SONS GIL AND RUKHSANA. PT AND FAMILY EDUCATED ON NEW MEDICATIONS. ALL QUESTIONS ANSWERED. IV REMOVED WITHOUT COMPLICATIONS. PT GETTING DRESSED
--- NOTE | 2023-07-25 15:39 | NUR ---
UPDATE FAMILY ARRIVED TO TAKE PT HOME. PT TAKEN OUT BY WC WITH ALL OF HER BELONGINGS
== END 2023-07-25 15:41 | disposition home or self-care (01) | DRG 91 ==
LOC: ER 10:18 → PCU 12:44
PROVIDERS: Emergency Medicine; Internal Medicine Nephrology; ADMIT Internal Medicine
PROC: 5A09357 Assistance with Respiratory Ventilation, Less than 24 Consecutive Hours, Continuous Positive Airway Pressure (ICD-10-PCS; principal; 2023-07-22)
DX: G92.8 Other toxic encephalopathy (principal); I50.33 Acute on chronic diastolic (congestive) heart failure; J96.01 Acute respiratory failure with hypoxia; S22.060A Wedge compression fracture of T7-T8 vertebra, initial encounter for closed fracture; N17.9 Acute kidney failure, unspecified; N39.0 Urinary tract infection, site not specified; M62.82 Rhabdomyolysis; E87.1 Hypo-osmolality and hyponatremia; N18.4 Chronic kidney disease, stage 4 (severe); I95.9 Hypotension, unspecified; D63.1 Anemia in chronic kidney disease; E87.70 Fluid overload, unspecified; F03.90 Unspecified dementia, unspecified severity, without behavioral disturbance, psychotic disturbance, mood disturbance, and anxiety; T48.1X5A Adverse effect of skeletal muscle relaxants [neuromuscular blocking agents], initial encounter; T40.2X5A Adverse effect of other opioids, initial encounter; M54.9 Dorsalgia, unspecified; G89.29 Other chronic pain; Z96.651 Presence of right artificial knee joint; X58.XXXA Exposure to other specified factors, initial encounter; Z90.89 Acquired absence of other organs; Z87.891 Personal history of nicotine dependence; Z88.8 Allergy status to other drugs, medicaments and biological substances; Z79.899 Other long term (current) drug therapy; Z98.890 Other specified postprocedural states; Z90.710 Acquired absence of both cervix and uterus; Z78.1 Physical restraint status
CPT/HCPCS: 36415; 51701; 71045; 76770; 80053; 80069; 81001; 82533; 82550; 82803; 83735; 83880; 84443; 84484; 84550; 85014; 85018; 85025; 87077; 87086; 87186; 93005; 93010; 93308; 93321; 94660; 94664; 94760; 96361-59; 96365-59; 96366-59; 96375-59; 97110; 97116; 97161; 97530; 99285-25; A9270; J0456; J0696; J1644; J1940; J2310; J2930; J7030; J7040; J7050

== ENCOUNTER 2024-06-02 17:31 | Emergency (ER) | payer OTHER ==
[~2024-06-02] VITALS: Ht 165.1 cm; Wt 83.9 kg
[~2024-06-02 17:31] MED LIST changes: +BUME2 PO; +GUAIASORB DM 2118 ML PO; +MIRALAX1714 PO; +OXYC5 PO; +PROBIOTIC1 EA13 PO; +Prinivil10 MG PO; +VISBIOME 112.51 EACH PO
[2024-06-02] MEDS ORDERED: NS 1,000 ML IV SCH (17:55)
[2024-06-02 18:08] LABS: BASOPHILS ABSOLUTE AUTO 0.05 K/mm3 (0.00-0.23); BASOPHILS PERCENT AUTO 1 % (0-2); EOSINOPHILS ABSOLUTE AUTO 0.14 K/mm3 (0.00-0.68); EOSINOPHILS PERCENT AUTO 3 % (0-6); Hematocrit 29.2 % (33.0-51.0); Hemoglobin 9.7 g/dL (11.5-16.0); IMMATURE GRAN ABSOLUTE AUTO 0.01 K/mm3 (0.00-0.10); IMMATURE GRAN PERCENT AUTO 0 % (0-1); LYMPHOCYTES PERCENT AUTO 34 % (21-46); MONOCYTES ABSOLUTE AUTO 0.56 K/mm3 (0.16-1.47); MONOCYTES PERCENT AUTO 10 % (4-13); Mean Corpuscular HGB 29.4 pg (26.0-34.0); Mean Corpuscular HGB Conc 33.2 g/dL (31.5-36.5); Mean Corpuscular Volume 89 fL (80-100); Mean Platelet Volume 8.5 fL (9.1-12.4); NEUTROPHILS PERCENT AUTO 52 % (41-73); Platelet Count 257 K/mm3 (150-400); RDW Coefficient Variation 12.5 % (11.7-14.2); RDW Standard Deviation 40.1 fL (35.1-46.3); White Blood Cell Count 5.36 K/mm3 (4.00-11.30)
[2024-06-02 18:37] LABS: Albumin, Blood 2.9 g/dL (3.4-5.0); Bilirubin, Total 0.4 mg/dL (0.1-1.0); Bun/Creatinine Ratio 24.7 (12.0-20.0); Calcium, Blood 7.5 mg/dL (8.5-10.1); Creatinine, Blood 1.74 mg/dL (0.40-1.00); Globulin, Blood 2.8 g/dL (2.2-4.0); Potassium, Blood 3.8 mmol/L (3.5-5.5); Total Protein, Blood 5.7 g/dL (6.4-8.2)
[2024-06-02 18:53] VITALS: BP 117/84
== END 2024-06-02 19:15 | disposition home or self-care (01) ==
LOC: ER 17:31
PROVIDERS: Emergency Medicine
DX: T67.5XXA Heat exhaustion, unspecified, initial encounter (principal); X30.XXXA Exposure to excessive natural heat, initial encounter; Z88.8 Allergy status to other drugs, medicaments and biological substances; Z79.899 Other long term (current) drug therapy; Z87.891 Personal history of nicotine dependence
CPT/HCPCS: 80053; 82550; 85025; J7030